=== PATIENT | female | born 1975 | race Caucasian/White ===

== ENCOUNTER → 2017-05-14 | Outpatient (CLI) | payer OTHER ==
[~2017-05-14] MED LIST: CYCL10 PO; HYDMOR2 PO; KETO10 PO; LORA1 PO; OXYACE5T PO; RXHYDMOR2 PO; SULTRIDS PO
== END ==
LOC: LAB 19:27
DX: N39.0 Urinary tract infection, site not specified (principal)
CPT/HCPCS: 87077; 87086; 87186

== ENCOUNTER → 2017-08-06 | Outpatient (CLI) | payer OTHER | END | disposition home or self-care (01) | LOC: LAB SHORT 10:50 → LAB 10:50 | DX: N39.0 Urinary tract infection, site not specified (principal) | CPT/HCPCS: 87086 ==

== ENCOUNTER 2018-10-28 22:33 | Emergency (ER) | payer OTHER ==
[~2018-10-28] VITALS: Ht 160 cm; Wt 60.8 kg
[2018-10-28 23:19] LABS: BASOPHILS ABSOLUTE AUTO 0.05 K/mm3 (0.00-0.23); BASOPHILS PERCENT AUTO 1 % (0-2); EOSINOPHILS ABSOLUTE AUTO 0.31 K/mm3 (0.00-0.68); EOSINOPHILS PERCENT AUTO 4 % (0-6); Hematocrit 42.8 % (33.0-51.0); Hemoglobin 13.7 g/dL (11.5-16.0); IMMATURE GRAN ABSOLUTE AUTO 0.02 K/mm3 (0.00-0.10); IMMATURE GRAN PERCENT AUTO 0 % (0-1); LYMPHOCYTES ABSOLUTE AUTO 2.04 K/mm3 (0.84-5.20); LYMPHOCYTES PERCENT AUTO 28 % (21-46); MONOCYTES ABSOLUTE AUTO 0.48 K/mm3 (0.16-1.47); MONOCYTES PERCENT AUTO 7 % (4-13); Mean Corpuscular HGB 30.2 pg (26.0-34.0); Mean Corpuscular Volume 95 fL (80-100); NEUTROPHILS ABSOLUTE AUTO 4.37 K/mm3 (1.96-9.15); NEUTROPHILS PERCENT AUTO 60 % (41-73); Platelet Count 244 K/mm3 (150-400); RDW Coefficient Variation 12.3 % (11.7-14.2); Red Blood Cell Count 4.53 M/mm3 (3.80-5.20); White Blood Cell Count 7.27 K/mm3 (4.00-11.30)
[2018-10-28] MEDS ORDERED: Esgic Tablet1 EACH PO (23:25)
[2018-10-28] MEDS ORDERED: ELET40TA PO (23:25)
[2018-10-29 00:04] LABS: Alanine Aminotransfer (ALT/SGP 16 U/L (12-78); Albumin, Blood 3.7 g/dL (3.4-5.0); Albumin/Globulin Ratio 1.2 (0.8-1.8); Alk Phos 44 U/L (50-136); Anion Gap 6 mmol/L (6-16); Aspartate Aminotrans (AST/SGOT 15 U/L (12-37); Bilirubin, Total <0.1 mg/dL (0.1-1.0); Blood Urea Nitrogen 10 mg/dL (8-24); Bun/Creatinine Ratio 16.7 (12.0-20.0); CO2, Blood 27 mmol/L (21-32); Calcium, Blood 8.5 mg/dL (8.5-10.1); Chloride, Blood 110 mmol/L (98-108); Globulin, Blood 3.2 g/dL (2.2-4.0); Glomerular Filtration Rate >60 (60-); Glucose, Blood 95 mg/dL (70-99); Potassium, Blood 4.1 mmol/L (3.5-5.5); Sodium, Blood 143 mmol/L (136-145); Total Protein, Blood 6.9 g/dL (6.4-8.2)
[2018-10-29] MEDS ORDERED: ONDA4ODT MM (00:27)
[2018-10-29] MEDS ORDERED: KETO10 PO (00:27)
[2018-10-29] MEDS ORDERED: LEVSOD75 PO (12:10)
[2018-10-29] MEDS ORDERED: AMIT75 PO (12:12)
[2018-10-29] MEDS ORDERED: AIMOVIG AU140 MG/1 M SC (12:12)
[2018-10-29] MEDS ORDERED: Bupropion HCl150 M2 PO (12:13)
[2018-10-29] MEDS ORDERED: TOPI100 PO (13:03)
[2018-10-29] MEDS ORDERED: TOPI50 PO (13:03)
[2018-10-29] MEDS ORDERED: XYZAL5 MG PO (15:33)
[2018-10-30] MEDS ORDERED: HYDR1TAB94 PO (13:09)
== END 2018-10-29 00:52 | disposition home or self-care (01) ==
LOC: ER 22:33
PROVIDERS: Emergency Medicine
DX: K80.70 Calculus of gallbladder and bile duct without cholecystitis without obstruction (principal); R06.00 Dyspnea, unspecified; Z88.0 Allergy status to penicillin; Z79.899 Other long term (current) drug therapy; Z79.891 Long term (current) use of opiate analgesic
CPT/HCPCS: 36415; 76705; 80053; 83690; 85025; 96374; 96375; 99284-25; A9270; A9270-GY; J1170; J2405

== ENCOUNTER 2018-10-29 09:46 | Observation (INO) | payer OTHER ==
[~2018-10-29] VITALS: Ht 160 cm; Wt 61.2 kg
[~2018-10-29 09:46] MED LIST changes: +ELET40TA PO; +Esgic Tablet1 EACH PO; +ONDA4ODT MM
[2018-10-29 10:46] LABS: BASOPHILS ABSOLUTE AUTO 0.03 K/mm3 (0.00-0.23); BASOPHILS PERCENT AUTO 0 % (0-2); EOSINOPHILS ABSOLUTE AUTO 0.17 K/mm3 (0.00-0.68); EOSINOPHILS PERCENT AUTO 2 % (0-6); Hematocrit 42.1 % (33.0-51.0); Hemoglobin 13.7 g/dL (11.5-16.0); IMMATURE GRAN ABSOLUTE AUTO 0.03 K/mm3 (0.00-0.10); IMMATURE GRAN PERCENT AUTO 0 % (0-1); LYMPHOCYTES ABSOLUTE AUTO 1.61 K/mm3 (0.84-5.20); LYMPHOCYTES PERCENT AUTO 18 % (21-46); MONOCYTES ABSOLUTE AUTO 0.48 K/mm3 (0.16-1.47); MONOCYTES PERCENT AUTO 5 % (4-13); Mean Corpuscular HGB Conc 32.5 g/dL (31.5-36.5); Mean Platelet Volume 11.1 fL (9.1-12.4); NEUTROPHILS ABSOLUTE AUTO 6.73 K/mm3 (1.96-9.15); NEUTROPHILS PERCENT AUTO 74 % (41-73); Platelet Count 222 K/mm3 (150-400); RDW Coefficient Variation 12.4 % (11.7-14.2); RDW Standard Deviation 41.6 fL (35.1-46.3); Red Blood Cell Count 4.57 M/mm3 (3.80-5.20); White Blood Cell Count 9.05 K/mm3 (4.00-11.30)
[2018-10-29 10:49] LABS: Mean Corpuscular Volume 92 fL (80-100)
[2018-10-29 11:05] LABS: Alanine Aminotransfer (ALT/SGP 15 U/L (12-78); Albumin, Blood 3.5 g/dL (3.4-5.0); Albumin/Globulin Ratio 1.1 (0.8-1.8); Alk Phos 41 U/L (50-136); Anion Gap 7 mmol/L (6-16); Aspartate Aminotrans (AST/SGOT 13 U/L (12-37); Bilirubin, Total 0.3 mg/dL (0.1-1.0); Blood Urea Nitrogen 6 mg/dL (8-24); Bun/Creatinine Ratio 10.1 (12.0-20.0); CO2, Blood 26 mmol/L (21-32); Calcium, Blood 8.3 mg/dL (8.5-10.1); Chloride, Blood 107 mmol/L (98-108); Globulin, Blood 3.3 g/dL (2.2-4.0); Glomerular Filtration Rate >60 (60-); Glucose, Blood 100 mg/dL (70-99); Potassium, Blood 3.9 mmol/L (3.5-5.5); Sodium, Blood 140 mmol/L (136-145); Total Protein, Blood 6.8 g/dL (6.4-8.2)
[2018-10-29] MEDS ORDERED: LEVSOD75 PO (12:10)
[2018-10-29] MEDS ORDERED: AIMOVIG AU140 MG/1 M SC (12:12)
[2018-10-29] MEDS ORDERED: AMIT75 PO (12:12)
[2018-10-29] MEDS ORDERED: Bupropion HCl150 M2 PO (12:13)
[2018-10-29] MEDS ORDERED: TOPI50 PO (13:03)
[2018-10-29] MEDS ORDERED: TOPI100 PO (13:03)
[2018-10-29] MEDS ORDERED: XYZAL5 MG PO (15:33)
--- NOTE | 2018-10-29 16:13 | NUR ---
SUMMARY PT ARRIVED TO ROOM FROM ED. AMBULATED TO RESTROOM AND VOIDED. REPORTS PAIN OF 6-7 IN RUQ, MEDICATED PER ORDERS. MEDICATED PER ORDERS FOR NAUSEA. ORIENTED TO ROOM AND CALL LIGHT. INSTRUCTED TO KEEP NPO. RESTING IN BED.
--- NOTE | 2018-10-29 17:35 | NUR ---
SUMMARY PT ARRIVED TO UNIT FROM ED THIS AFTERNOON. INDEPENDENT IN ROOM. MEDICATED PER ORDERS FOR PAIN AND NAUSEA. IV FLUIDS INFUSING W/O DIFFICULTY. CALL LIGHT IN REACH. PT NPO. PLAN FOR OR TONIGHT.
--- NOTE | 2018-10-29 22:00 | NUR ---
RECEIVED HAND OFF FROM ACID[employer]ER USING SBAR. TRANSPORTED TO ROOM VIA STRETCHER. TRANSFERED TO BED WITH FULL STAFF ASSISTANCE. DROWSY, BUT FOLLOWS ALL COMMANDS. ORIENTED TO ROOM, CALL SYSTEM, AND POC, VOICES UNDERSTANDING. RESPIRATIONS EVEN AND UNLABORED ON O2 AT 2L/NC. LUNG SOUNDS CLEAR BILATERALLY. ABDOMEN FIRM WITH DISTANT, HYPOACTIVE BOWEL SOUNDS. LAP SITES X4 COVERED BY STERISTRIPS. CONTINENT OF BOWEL AND BLADDER, WILL AMBULATE TO BATHROOM WITH ASSISTANCE. LR ADMINISTERING AT 100ML/HR. SCD'S TO BLE. WILL MEDICATE PAIN OF PER EMAR PRN. SAFETY MEASURES IN PLACE. ADMISSION ASSESSMENT IN PROGRESS. SAFETY MEASURES IN PLACE. WILL CONTINUE TO MONITOR.
--- NOTE | 2018-10-30 06:35 | NUR ---
SHIFT SUMMARY HAS RESTED WELL SINCE RETURN FROM SURGERY AND RECOVERY IN ICU. LYING IN SEMI FOWLERS WITH EYES CLOSED. LAP SITES X4 ARE STILL C/D/I, PAIN IS MANAGED. DENIES NEEDS OR WANTS AT THIS TIME. SAFETY MEASURES IN PLACE. WILL GIVE HAND OFF TO ONCOMING SHIFT USING SBAR.
--- NOTE | 2018-10-30 07:30 | NUR ---
pt awake laying in bed stated she has passed gas since surg pain is 3/10 req some pain meds will give with snack has only had ice chips during the night will trial jello and juice if to will adv to reg breakfast no nausea
--- NOTE | 2018-10-30 08:55 | NUR ---
s/o at bedside pt bart reg breakast no nausea iv sl pain 1/0 with pain meds pt wanting to take a shower
[2018-10-30] MEDS ORDERED: HYDR1TAB94 PO (13:09)
--- NOTE | 2018-10-30 13:40 | NUR ---
dr vora by to see pt discharge instructions reviewed with pt verbalzed instructions rx given no acute changes
--- NOTE | 2018-10-30 13:55 | NUR ---
wc escort to car
--- NOTE | 2018-10-31 15:52 | NUR ---
10/31/18 1552 Josselin Rocha VERIFICATIONS, CHART AUDITS. VERIFIED ANESTHESIA END WITH ANESTHESIA REPORT.
== END 2018-10-30 13:55 | disposition home or self-care (01) ==
LOC: ER 09:46 → SURS 09:47 → ER 12:30 → SURS 13:13 → ICUE 21:09 → SURS 21:53 → ICUE 21:53 → SURS 10-30 13:55
PROVIDERS: Emergency Medicine; ADMIT Surgery
PROC: BF03YZZ Plain Radiography of Gallbladder and Bile Ducts using Other Contrast (ICD-10-PCS; 2018-10-29)
PROC: 0FT44ZZ Resection of Gallbladder, Percutaneous Endoscopic Approach (ICD-10-PCS; principal; 2018-10-29 19:15)
DX: K80.00 Calculus of gallbladder with acute cholecystitis without obstruction (principal); E78.5 Hyperlipidemia, unspecified; I10 Essential (primary) hypertension; E11.9 Type 2 diabetes mellitus without complications; G43.909 Migraine, unspecified, not intractable, without status migrainosus; E03.9 Hypothyroidism, unspecified; Z88.0 Allergy status to penicillin; Z79.899 Other long term (current) drug therapy
CPT/HCPCS: 36415; 74300; 80053; 83690; 85025; 88304; 96361; 96374; 96375; 96376; 99285-25; A9270-GY; C1729; G0378; J0690; J1100; J1170; J1885; J2250; J2405; J2704; J2710; J2765; J3010; J7030; J7120

== ENCOUNTER 2019-06-03 15:35 | Emergency (ER) | payer OTHER ==
[~2019-06-03] VITALS: Ht 160 cm; Wt 65.3 kg
[~2019-06-03 15:35] MED LIST changes: +AIMOVIG AU140 MG/1 M SC; +AMIT75 PO; +Bupropion HCl150 M2 PO; +HYDR1TAB94 PO; +LEVSOD75 PO; +TOPI100 PO; +TOPI50 PO; +XYZAL5 MG PO
[2019-06-03] MEDS ORDERED: PROM25 PO (17:52)
[2019-06-03] MEDS ORDERED: IBUP600 PO (17:52)
[2019-06-03] MEDS ORDERED: Vibramycin100 MG PO (17:52)
== END 2019-06-03 18:04 | disposition home or self-care (01) ==
LOC: ER 15:35
DX: J18.9 Pneumonia, unspecified organism (principal); F32.9 Major depressive disorder, single episode, unspecified; Z88.0 Allergy status to penicillin; Z79.899 Other long term (current) drug therapy
CPT/HCPCS: 71046; 96372; 99283-25; J1885; J2550

== ENCOUNTER → 2020-06-23 | Outpatient (CLI) | payer OTHER ==
[~2020-06-23] MED LIST changes: +IBUP600 PO; +PROM25 PO; +Vibramycin100 MG PO
[2020-06-23 10:14] LABS: BASOPHILS ABSOLUTE AUTO 0.02 K/mm3 (0.00-0.23); BASOPHILS PERCENT AUTO 0 % (0-2); EOSINOPHILS ABSOLUTE AUTO 0.12 K/mm3 (0.00-0.68); EOSINOPHILS PERCENT AUTO 2 % (0-6); IMMATURE GRAN ABSOLUTE AUTO 0.02 K/mm3 (0.00-0.10); IMMATURE GRAN PERCENT AUTO 0 % (0-1); LYMPHOCYTES ABSOLUTE AUTO 1.04 K/mm3 (0.84-5.20); LYMPHOCYTES PERCENT AUTO 16 % (21-46); MONOCYTES ABSOLUTE AUTO 0.35 K/mm3 (0.16-1.47); MONOCYTES PERCENT AUTO 5 % (4-13); Mean Corpuscular HGB 30.9 pg (26.0-34.0); Mean Corpuscular HGB Conc 33.3 g/dL (31.5-36.5); Mean Corpuscular Volume 93 fL (80-100); Mean Platelet Volume 11.3 fL (9.1-12.4); NEUTROPHILS ABSOLUTE AUTO 5.05 K/mm3 (1.96-9.15); NEUTROPHILS PERCENT AUTO 77 % (41-73); Platelet Count 261 K/mm3 (150-400); RDW Coefficient Variation 12.9 % (11.7-14.2); Red Blood Cell Count 4.85 M/mm3 (3.80-5.20)
[2020-06-23 10:37] LABS: Alanine Aminotransfer (ALT/SGP 22 U/L (12-78); Albumin, Blood 3.6 g/dL (3.4-5.0); Albumin/Globulin Ratio 1.1 (0.8-1.8); Alk Phos 50 U/L (50-136); Anion Gap 3 mmol/L (6-16); Aspartate Aminotrans (AST/SGOT 14 U/L (12-37); Bilirubin, Total 0.5 mg/dL (0.1-1.0); Blood Urea Nitrogen 8 mg/dL (8-24); Bun/Creatinine Ratio 9.4 (12.0-20.0); CO2, Blood 30 mmol/L (21-32); Calcium, Blood 8.3 mg/dL (8.5-10.1); Chloride, Blood 104 mmol/L (98-108); Creatinine, Blood 0.85 mg/dL (0.40-1.00); Globulin, Blood 3.4 g/dL (2.2-4.0); Glomerular Filtration Rate >60 (60-); Glucose, Blood 89 mg/dL (70-99); Sodium, Blood 137 mmol/L (136-145)
== END | disposition home or self-care (01) ==
LOC: LAB SHORT 10:06
PROVIDERS: Physician Assistant
DX: K92.1 Melena (principal)
CPT/HCPCS: 80053; 85025

== ENCOUNTER → 2023-06-30 | Outpatient (CLI) | payer OTHER | END | disposition home or self-care (01) | LOC: LAB SHORT 12:24 → LAB 12:24 | DX: R30.0 Dysuria (principal); R35.0 Frequency of micturition | CPT/HCPCS: 87086 ==